=== PATIENT | female | born 1970 | race Caucasian/White ===

== ENCOUNTER 2016-09-23 20:09 | Emergency (ER) | payer OTHER ==
[~2016-09-23] VITALS: Ht 152.4 cm; Wt 61.7 kg
--- NOTE | 2016-09-23 20:15 | NUR ---
PT PRESENTED TO THE ER WITH A C/O ASTHMA. PT HAS BILATERAL WHEEZES NOTED. PT AMBULATED TO BED #7 WITH A STEADY GAIT. NO SOB NOTED.
[2016-09-23] MEDS ORDERED: methylPREDNISolone SOD SUCC 125 MG/2ML VIAL ONE (20:42)
[2016-09-23] MEDS ORDERED: ALBUTEROL FS 2.5 MG/3 ML VIAL.NEB ONE (20:44)
--- NOTE | 2016-09-23 20:45 | NUR ---
CXR IN PROGRESS
[2016-09-23 20:46] LABS: BASOPHILS # (AUTO) 0.1 /CMM (0.0-0.2); BASOPHILS % (AUTO) 0.6 % (0.0-2.0); EOSINOPHILS # (AUTO) 0.5 /CMM (0.0-0.7); HEMATOCRIT 44 % (33-45); HEMOGLOBIN 14.6 g/dL (11.5-14.8); LYMPHOCYTES # (AUTO) 2.4 /CMM (0.8-4.8); LYMPHOCYTES % (AUTO) 26.4 % (20.0-44.0); MEAN CORPUSCULAR HEMOGLOBIN 28 PG (26.0-33.0); MEAN CORPUSCULAR HGB CONC 33 g/dl (31.0-36.0); MEAN CORPUSCULAR VOLUME 84 fL (82-100); MONOCYTES # (AUTO) 0.6 /CMM (0.1-1.30); MONOCYTES % (AUTO) 7.1 % (2.0-12.0); NEUTROPHILS # (AUTO) 5.3 /CMM (1.8-8.9); NEUTROPHILS % (AUTO) 59.9 % (43.0-81.0); PLATELET COUNT (AUTO) 316 /CMM (150-450); RDW COEFFICIENT OF VARIATION 12.2 (11.5-15.0); WHITE BLOOD COUNT (AUTO) 8.9 K/uL (4.3-11.0)
[2016-09-23 20:54] LABS: CALCIUM, SERUM 9.5 mg/dL (8.5-10.1); CREATININE 0.8 mg/dL (0.6-1.3); POTASSIUM 3.5 mmol/L (3.5-5.1)
[2016-09-23] MEDS ORDERED: methylPREDNISolone SOD SUCC 125 MG/2ML VIAL IV ONE (21:00)
[2016-09-23] MEDS ORDERED: ALBUTEROL FS 2.5 MG/3 ML VIAL.NEB CONTNEB ONE (21:00)
--- NOTE | 2016-09-23 21:27 | NUR ---
IV removed. Catheter intact and site benign. Pressure and 4x4 applied to site. No bleeding noted.Patient discharged to home in stable condition. Written and verbal after care instructions given. Patient verbalizes understanding of instruction AND RX. PT REC'D AN EXCUSE FOR WORK/SCHOOL. COPY OF ALL LABS AND IMAGING FINDINGS GIVEN TO PT. PT AMBULATED OUT WITH A STEADY GAIT. VSS.
[2016-09-23 21:30] VITALS: BP 136/89
== END 2016-09-23 21:30 | disposition home or self-care (01) ==
LOC: ER 20:11
DX: J45.901 Unspecified asthma with (acute) exacerbation (principal); R05 Cough
CPT/HCPCS: 36415; 71010-TC; 80048-TC; 85025-TC; A4606; J2930; Z7610

== ENCOUNTER 2017-09-21 12:48 | Emergency (ER) | payer OTHER ==
[~2017-09-21] VITALS: Ht 152.4 cm; Wt 60.3 kg
--- NOTE | 2017-09-21 13:14 | NUR ---
BB SELF: LOWER ABD PAIN SINCE THIS AM, +N/V
[2017-09-21] MEDS ORDERED: HYDROCODONE/APAP 5/325MG 1 EACH TABLET ONE (13:42)
[2017-09-21 13:45] LABS: APPEARANCE,URINE Clear (CLEAR); BILIRUBIN,URINE Negative (NEGATIVE); BLOOD, URINE Negative Ery/uL (NEGATIVE); COLOR,URINE Yellow (YELLOW); KETONES,URINE 15 (NEGATIVE); LEUKOCYTE ESTERASE ,URINE Trace (NEGATIVE); NITRITE, URINE Negative (NEGATIVE); PROTEIN,URINE 30 mg/dl (NEGATIVE); UGLUCOSE Negative (NEGATIVE); UROBILINOGEN,URINE 0.2 EU/dL (0.2)
[2017-09-21] MEDS ORDERED: ONDANSETRON 4 MG TAB.RAPDIS ONE (13:45)
[2017-09-21 13:57] LABS: BACTERIA,URINE None seen /HPF (None Seen); RBC,URINE 0-3 /HPF (0-2); SQUAMOUS EPITHELIAL CELL,UR Many /HPF (None Seen)
[2017-09-21] MEDS ORDERED: IV NS 0.9% 500 ML BAG IV ONE (14:00)
[2017-09-21] MEDS ORDERED: HYDROCODONE/APAP 5/325MG 1 EACH TABLET PO ONE (14:00)
[2017-09-21] MEDS ORDERED: ONDANSETRON 4 MG TAB.RAPDIS PO ONE (14:00)
[2017-09-21 14:05] LABS: BASOPHILS % (AUTO) 0.3 % (0.0-2.0); EOSINOPHILS % (AUTO) 0.2 % (0.0-6.0); HEMATOCRIT 41 % (33-45); HEMOGLOBIN 13.8 g/dL (11.5-14.8); LYMPHOCYTES # (AUTO) 0.6 /CMM (0.8-4.8); LYMPHOCYTES % (AUTO) 4.4 % (20.0-44.0); MEAN CORPUSCULAR HGB CONC 34 g/dl (31.0-36.0); MEAN CORPUSCULAR VOLUME 84 fL (82-100); MONOCYTES # (AUTO) 0.4 /CMM (0.1-1.30); MONOCYTES % (AUTO) 2.5 % (2.0-12.0); NEUTROPHILS # (AUTO) 13.3 /CMM (1.8-8.9); NEUTROPHILS % (AUTO) 92.6 % (43.0-81.0); PLATELET COUNT (AUTO) 282 /CMM (150-450); RDW COEFFICIENT OF VARIATION 12.3 (11.5-15.0); RED BLOOD CELL COUNT(AUTO) 4.86 MIL/uL (4.0-5.2); WHITE BLOOD COUNT (AUTO) 14.3 K/uL (4.3-11.0)
[2017-09-21 14:14] LABS: CALCIUM, SERUM 9.1 mg/dL (8.5-10.1); CREATININE 0.6 mg/dL (0.6-1.3); POTASSIUM 3.7 mmol/L (3.5-5.1)
[2017-09-21 14:20] LABS: ALBUMIN 3.8 g/dL (3.4-5.0); BILIRUBIN,DIRECT 0.1 mg/dL (0.0-0.2); BILIRUBIN,TOTAL 0.3 mg/dL (0.2-1.0); TOTAL PROTEIN, SERUM 7.9 g/dL (6.4-8.2)
--- NOTE | 2017-09-21 14:37 | NUR ---
[employer]ER AT BEDSIDE
[2017-09-21] MEDS ORDERED: ALBUTEROL FS 2.5 MG/3 ML VIAL.NEB ONE (15:54)
[2017-09-21] MEDS ORDERED: IPRATROPIUM NEB FS 0.5 MG/2.5 ML AMPUL.NEB ONE (15:54)
--- NOTE | 2017-09-21 15:58 | NUR ---
RT AT BEDSIDE FOR BREATHING TX
[2017-09-21] MEDS ORDERED: IPRATROPIUM NEB FS 0.5 MG/2.5 ML AMPUL.NEB NEB ONE (16:00)
[2017-09-21] MEDS ORDERED: ALBUTEROL FS 2.5 MG/3 ML VIAL.NEB NEB ONE (16:00)
--- NOTE | 2017-09-21 16:53 | NUR ---
Patient discharged to home in stable condition. Written and verbal after care instructions given. Patient verbalizes understanding of instruction.
--- NOTE | 2017-09-21 16:53 | NUR ---
IV removed. Catheter intact and site benign. Pressure and 4x4 applied to site. No bleeding noted.
[2017-09-21 16:54] VITALS: BP 101/68
== END 2017-09-21 16:56 | disposition home or self-care (01) ==
LOC: ER 12:49
DX: N39.0 Urinary tract infection, site not specified (principal); R11.2 Nausea with vomiting, unspecified; R10.11 Right upper quadrant pain; R05 Cough; J44.9 Chronic obstructive pulmonary disease, unspecified
CPT/HCPCS: 36415; 71045; 76705; 80048; 80076; 81001; 83690; 84703; 85025; 94640 ×2; 99285; A4606; J7040; Q0162; Z7610; 81000-TC

== ENCOUNTER 2019-03-12 18:54 | Emergency (ER) | payer OTHER ==
[~2019-03-12] VITALS: Ht 152.4 cm; Wt 61.2 kg
--- NOTE | 2019-03-12 19:32 | NUR ---
PRESENTED TO THE ER W/ C/C VAGINAL DISCHARGE AND VAGINAL SWELLING X1WK, GIVEN ANTIBIOTICS BY PMD BUT S/S CAME BACK AFTER MEDS
--- NOTE | 2019-03-12 19:35 | NUR ---
AN [employer]IV[employer] PAC AT THE BED SIDE
[2019-03-12] MEDS ORDERED: CEFTRIAXONE 500 MG VIAL ONE (19:53)
[2019-03-12] MEDS ORDERED: AZITHROMYCIN 250 MG TABLET ONE (19:53)
[2019-03-12] MEDS ORDERED: LIDOCAINE /MPF 1% VIAL 5 ML VIAL ONE (19:54)
[2019-03-12 20:00] LABS: APPEARANCE,URINE Slightly Cloudy (CLEAR); BILIRUBIN,URINE Negative (NEGATIVE); BLOOD, URINE Trace-intact Ery/uL (NEGATIVE); COLOR,URINE Yellow (YELLOW); KETONES,URINE Negative (NEGATIVE); LEUKOCYTE ESTERASE ,URINE Large (NEGATIVE); NITRITE, URINE Negative (NEGATIVE); PROTEIN,URINE Negative (NEGATIVE); UGLUCOSE Negative (NEGATIVE); UROBILINOGEN,URINE 0.2 EU/dL (0.2)
[2019-03-12] MEDS ORDERED: CEFTRIAXONE 500 MG VIAL IM ONE (20:00)
[2019-03-12] MEDS ORDERED: AZITHROMYCIN 250 MG TABLET PO ONE (20:00)
[2019-03-12 20:19] LABS: BACTERIA,URINE Rare /HPF (None Seen); SQUAMOUS EPITHELIAL CELL,UR Few /HPF (None Seen); WBC,URINE TOO NUMEROUS TO COUN /HPF (0-3)
[2019-03-12 20:20] LABS: MUCUS,URINE Moderate /LPF (None Seen)
--- NOTE | 2019-03-12 20:52 | NUR ---
Patient discharged to home in stable condition. rx and Written and verbal after care instructions given. Patient verbalizes understanding of instruction.
[2019-03-12 23:56] VITALS: BP 133/87
== END 2019-03-12 20:52 | disposition home or self-care (01) ==
LOC: ER 18:57
DX: A59.01 Trichomonal vulvovaginitis (principal); J45.909 Unspecified asthma, uncomplicated
CPT/HCPCS: 81001; 84703; 87086; 87210; 87491; 87591; 96372; 99283; J0696; J3490; 81000-TC

== ENCOUNTER 2019-05-31 19:12 | Emergency (ER) | payer OTHER ==
[~2019-05-31] VITALS: Ht 152.4 cm; Wt 64.4 kg
[2019-05-31 19:15] VITALS: BP 148/100
== END 2019-05-31 19:52 | disposition home or self-care (01) ==
LOC: ER 19:15
DX: A63.0 Anogenital (venereal) warts (principal); J44.9 Chronic obstructive pulmonary disease, unspecified